=== PATIENT | female | born 1950 | race African-American/Black ===

== ENCOUNTER → 2016-03-10 | Outpatient (CLI) | payer MEDICARE, BC | LOC: PCVCIMAG 11:03 | PROVIDERS: ATTEND Internal Medicine Cardiovascular Disease | DX: I25.10 Atherosclerotic heart disease of native coronary artery without angina pectoris (principal); I10 Essential (primary) hypertension; E78.00 Pure hypercholesterolemia, unspecified | CPT/HCPCS: 93325; 93351 ==

== ENCOUNTER → 2016-11-19 | Outpatient (CLI) | payer MEDICARE, BC | END | disposition home or self-care (01) | LOC: PCVCCLINIC 15:47 | PROVIDERS: ATTEND Internal Medicine Cardiovascular Disease | DX: I25.10 Atherosclerotic heart disease of native coronary artery without angina pectoris (principal); I10 Essential (primary) hypertension; E78.00 Pure hypercholesterolemia, unspecified; G47.33 Obstructive sleep apnea (adult) (pediatric); Z96.653 Presence of artificial knee joint, bilateral; Z79.82 Long term (current) use of aspirin; Z79.899 Other long term (current) drug therapy; Z88.8 Allergy status to other drugs, medicaments and biological substances | CPT/HCPCS: 80061; 93005; G0463 ==

== ENCOUNTER → 2017-11-16 | Outpatient (CLI) | payer MEDICARE, BC ==
--- NOTE | 2017-11-16 16:32 | PCVCIMAG ---
APPROVED REPORT Study performed: 11/16/2017 14:55:57 Exam: Stress Echocardiogram Indication: CAD , Hypertension, Hyperlipidemia Patient Location: Echo lab Stress Nurse: Yvette Rubio RN Room #: 2 Status: routine Ht: 5 ft 0 in HR: 80 bpm BP: 128/82 mmHg Rhythm: NSR Medical History Medical History: HTN,, Hyperlipidemia Cardiac Risk Factors: HTN, Hyperlipidemia Previous Cardiac Procedures: none Pretest Chest Pain Characteristics: No chest pain Exercise History: Physically active Procedure The patient underwent an Exercise Stress Test using the Mindi Protocol. Blood pressure, heart rate, and EKG were monitored. An Echocardiogram was performed by public health sanitarian technician in four stages in quad fashion. At peak stress, four selected images were obtained and placed side by side with resting images for comparison. Stress Test Details Stress Test: Exercise stress testing was performed using a Mindi protocol. HR Resting HR: 80 bpmMax Heart Rate (APMHR): 153 bpm Max HR Achieved: 164 bpmTarget HR (85% APMHR): 130 bpm % of APMHR: 107 Recovery HR: 94 bpm HR response to stress: Normal HR response to stress BP Resting BP: 128/82 mmHg Max BP: 172/76 mmHg Recovery BP: 116/80 mmHg ECG Resting ECG: Sinus Rhythm Stress ECG: Sinus Rhythm ST Change: Non-ischemic Arrhythmia: Rare PVCs Recovery ECG: Sinus Rhythm Recovery ST Change: Non-ischemic Recovery Arrhythmia: None Clinical Reason for Termination: Maximal effort Stress Symptoms: none Exercise duration: 9 min sec Highest Stage Achieved: Stage 3: 3.4 mph at 14% grade. Exercise capacity: 10.4 METs Overall Exercise Capacity for Age: Normal Scale: Active Angina Score: None No complications. Stress ECG Conclusion The patient exercised according to the MINDI protocol for 9:00 mins; achieving a work level of 10.4 METS. The resting heart rate of80 bpm guillermo to a maximum heart rate of 164 bpm. This value represent 107% of the maximal, age-predicted heart rate. The resting blood pressure of 128/82 mmHg, guillermo to a maximum blood pressure of 172/76 mmHg. The exercise test was stopped due to fatigue . Pre-Stress Echo The resting Echocardiogram showed normal left ventricular contractility with an estimated Ejection Fraction of about 55-60%. Normal wall motion in all segments on baseline images. Post-Stress Echo The stress Echocardiogram showed normal left ventricular contractility with an estimated Ejection Fraction of about 65-70%. Normal augmentation of wall motion in all segments on post stress images. Clinical No clinical or ECG evidence for ischemia. Conclusion Clinical Response: Non-ischemic Exercise Capacity: Average Stress ECG Response: Non-ischemic Stress Echo Images: Non-ischemic No clinical, EKG or echocardiographic evidence for ischemia. No echocardiographic evidence for exercise induced ischemia. Normal stress echocardiogram with maximal exercise stress. <Conclusion> No clinical, EKG or echocardiographic evidence for ischemia. No echocardiographic evidence for exercise induced ischemia. Normal stress echocardiogram with maximal exercise stress.
== END | disposition home or self-care (01) ==
LOC: PCVCIMAG 15:51
PROVIDERS: ATTEND Internal Medicine Cardiovascular Disease
DX: I10 Essential (primary) hypertension (principal); G47.33 Obstructive sleep apnea (adult) (pediatric); E78.5 Hyperlipidemia, unspecified; I20.9 Angina pectoris, unspecified
CPT/HCPCS: 93325; 93351

== ENCOUNTER → 2018-08-02 | Outpatient (CLI) | payer MEDICARE, BC | END | disposition home or self-care (01) | LOC: PCVCCLINIC 13:30 | PROVIDERS: ATTEND Internal Medicine Cardiovascular Disease | DX: I10 Essential (primary) hypertension (principal); E78.00 Pure hypercholesterolemia, unspecified; I25.10 Atherosclerotic heart disease of native coronary artery without angina pectoris; Z86.2 Personal history of diseases of the blood and blood-forming organs and certain disorders involving the immune mechanism; Z88.0 Allergy status to penicillin; Z79.899 Other long term (current) drug therapy | CPT/HCPCS: 36415; 80061; 93005; G0463 ==